=== PATIENT | female | born 1955 | race Two or more races ===

== ENCOUNTER 2018-09-18 08:01 | Outpatient (CLI) | payer OTHER | END 2018-09-18 08:43 | disposition home or self-care (01) | LOC: NUCLEAR 08:01 | DX: M25.562 Pain in left knee (principal); I87.2 Venous insufficiency (chronic) (peripheral) ==

== ENCOUNTER 2018-12-31 10:08 | Outpatient (CLI) | payer OTHER | END 2018-12-31 10:53 | disposition home or self-care (01) | LOC: TOM 10:08 | DX: R51 Headache (principal) ==